=== PATIENT | female | born 1985 | race Caucasian/White ===

== ENCOUNTER 2016-06-13 08:30 | Day surgery (SDC) | payer OTHER ==
[~2016-06-13] VITALS: Ht 170.2 cm; Wt 82.0 kg
[~2016-06-13 08:30] MED LIST: BUSPAR15 MG PO; HYDROCODON-ACE1 EAC8 PO; PHENTERMINE HCL30 MG PO
[2016-06-13] MEDS ORDERED: TRAMADOL HCL50 MG PO (09:05)
[2016-06-13] MEDS ORDERED: TYLENOL WITH C1 EACH PO (09:06)
[2016-06-13 09:10] VITALS: BP 135/61
[2016-06-13 13:45] VITALS: BP 111/60
[2016-06-13 15:43] VITALS: BP 125/68
[2016-06-17 13:09] LABS: INTERNAL CONTROL VALID? YES
== END 2016-06-13 15:55 | disposition home or self-care (01) ==
LOC: SDC 08:30
PROVIDERS: Neurological Surgery
PROC: 0SB20ZZ Excision of Lumbar Vertebral Disc, Open Approach (ICD-10-PCS; principal; 2016-06-13)
DX: M51.16 Intervertebral disc disorders with radiculopathy, lumbar region (principal); Z68.28 Body mass index [BMI] 28.0-28.9, adult; E78.5 Hyperlipidemia, unspecified; F17.200 Nicotine dependence, unspecified, uncomplicated; Z82.49 Family history of ischemic heart disease and other diseases of the circulatory system; Z83.3 Family history of diabetes mellitus
CPT/HCPCS: 72100; 76000; 84703; J0690; J1170; J2250; J3010; S0020